=== PATIENT | male | born 1960 | race Caucasian/White ===

== ENCOUNTER 2017-10-22 19:36 | Emergency (ER) | payer OTHER ==
[~2017-10-22] VITALS: Ht 172.7 cm; Wt 71.6 kg
[~2017-10-22 19:36] MED LIST: BUPROPION HCL300 MG PO; CIPROFLOXACN500 MG PO; FIORICET PO; MEDDOSEPAK OR; MEDDOSEPAK PO; METRONIDAZOL500 MG PO; NAPROSYN250 MG PO
[2017-10-22] MEDS ORDERED: DOXYCYC MONO100 M2 PO (20:23)
[2017-10-22 20:31] VITALS: BP 128/77
== END 2017-10-22 20:29 | disposition home or self-care (01) | DRG 603 ==
LOC: ED 19:36
DX: L03.115 Cellulitis of right lower limb (principal)

== ENCOUNTER 2019-11-18 22:46 | Emergency (ER) | payer OTHER ==
[~2019-11-18] VITALS: Ht 172.7 cm; Wt 72.7 kg
[~2019-11-18 22:46] MED LIST changes: +DOXYCYC MONO100 M2 PO
[2019-11-18 22:50] VITALS: BP 154/84
[2019-11-18] MEDS ORDERED: KEFLEX500 MG PO (23:10)
== END 2019-11-18 23:38 | disposition home or self-care (01) | DRG 607 ==
LOC: ED 22:46
DX: S20.462A Insect bite (nonvenomous) of left back wall of thorax, initial encounter (principal); L02.212 Cutaneous abscess of back [any part, except buttock and flank]; F17.200 Nicotine dependence, unspecified, uncomplicated; W57.XXXA Bitten or stung by nonvenomous insect and other nonvenomous arthropods, initial encounter